=== PATIENT | male | born 1940 | race Caucasian/White ===

== ENCOUNTER 2021-05-04 07:21 | Emergency (ER) | payer SELFPAY ==
[~2021-05-04] VITALS: Ht 165.1 cm; Wt 63.0 kg
[2021-05-04] MEDS ORDERED: SODIUM CHLORIDE 0.9% 1,000 ML IV ONE (08:00)
[2021-05-04] MEDS ORDERED: ONDANSETRON HCL 4MG/2ML INJ IV STA (08:00)
[2021-05-04] MEDS ORDERED: MAGNESIUM/ALUMINUM HYDROXIDE/SIMETHICONE 30ML UDC PO STA (08:05)
[2021-05-04 08:30] LABS: HEMOGLOBIN. 17.9 g/dL (14.0-18.0); MEAN CORPUSCULAR HEMOGLOBIN 32.4 pg (28.0-32.0); MEAN CORPUSCULAR VOLUME 93.9 fL (80.0-94.0); MEAN PLATELET VOLUME 10.2 fl (7.4-10.4); PLATELET 248 x1000/uL (130-400); RED BLOOD CELL COUNT 5.53 mill/uL (4.7-6.1); RED CELL DISTRIBUTION WIDTH 12.3 % (11.6-14.6)
[2021-05-04 08:39] LABS: CHLORIDE 94 mEq/L (98-107)
[2021-05-04 09:13] LABS: PLATELET ESTIMATE NORMAL
[2021-05-04] MEDS ORDERED: ONDA4TAB5 MT (10:03)
[2021-05-04 10:14] VITALS: BP 172/99
== END 2021-05-04 11:21 | disposition home or self-care (01) ==
LOC: ER 07:58
DX: K29.70 Gastritis, unspecified, without bleeding (principal); E11.9 Type 2 diabetes mellitus without complications; Z98.890 Other specified postprocedural states
CPT/HCPCS: 36415; 80053; 83690; 85025; 93005; 96361; 96374; 99284; J2405; J7030

== ENCOUNTER 2021-05-25 21:30 | Emergency (ER) | payer SELFPAY ==
[~2021-05-25] VITALS: Ht 172.7 cm; Wt 57.0 kg
[~2021-05-25 21:30] MED LIST: ONDA4TAB5 MT
[2021-05-25 21:39] VITALS: BP 113/70
[2021-05-25] MEDS ORDERED: ACETAMINOPHEN 325MG TABLET PO NR (22:37)
[2021-05-26 00:09] LABS: HEMATOCRIT. 41.3 % (42.0-52.0); HEMOGLOBIN. 14.6 g/dL (14.0-18.0); LYMPHOCYTES % 24.7 % (20.0-50.0); MEAN CORPUSCULAR HEMOGLOBIN 32.5 pg (28.0-32.0); MEAN CORPUSCULAR VOLUME 92.2 fL (80.0-94.0); MEAN PLATELET VOLUME 9.4 fl (7.4-10.4); MONOCYTES % 7.8 % (2.0-8.0); NEUTROPHILS % 64.5 % (40.0-76.0); PLATELET 210 x1000/uL (130-400); RED BLOOD CELL COUNT 4.48 mill/uL (4.7-6.1); RED CELL DISTRIBUTION WIDTH 13.2 % (11.6-14.6)
[2021-05-26 00:14] LABS: CHLORIDE 100 mEq/L (98-107)
[2021-05-26 00:22] LABS: BETA HYDROXYBUTYRATE 0.1 mMol/L (0.0-0.3)
[2021-05-26] MEDS ORDERED: IBUPROFEN 600MG TABLET PO NR (00:52)
== END 2021-05-26 01:33 | disposition left against medical advice (07) ==
LOC: ER 21:30
DX: M79.662 Pain in left lower leg (principal); E11.9 Type 2 diabetes mellitus without complications
CPT/HCPCS: 36415; 80048; 82010; 85025; 99283

== ENCOUNTER 2023-11-05 10:09 | Inpatient (IN) | payer SELFPAY ==
[~2023-11-05] VITALS: Ht 172.7 cm; Wt 65.3 kg
[2023-11-05 10:11] VITALS: O2SAT 99
[2023-11-05] MEDS: ONDANSETRON HCL 4MG/2ML INJ IV STA (11:10)
[2023-11-05] MEDS: MORPHINE SULFATE 4 MG/ML INJ (FOR IV/IM USE) IV STA (11:10)
[2023-11-05] MEDS: SODIUM CHLORIDE 0.9% 1,000 ML IV ONE (11:10)
[2023-11-05 11:18] LABS: HEMATOCRIT. 35.7 % (42.0-52.0); HEMOGLOBIN. 12.2 g/dL (14.0-18.0); MEAN CORPUSCULAR HEMOGLOBIN 31.5 pg (28.0-32.0); MEAN CORPUSCULAR HGB CONC 34.3 g/dL (31.0-37.0); MEAN PLATELET VOLUME 9.3 fl (7.4-10.4); PLATELET 223 x1000/uL (130-400); RED BLOOD CELL COUNT 3.88 mill/uL (4.7-6.1); RED CELL DISTRIBUTION WIDTH 13.2 % (11.6-14.6); WHITE BLOOD COUNT 16.4 x1000/uL (4.5-11.0)
[2023-11-05 11:20] LABS: DIFFERENTIAL COMMENT 1
[2023-11-05 11:23] LABS: PLATELET ESTIMATE NORMAL
[2023-11-05 11:26] LABS: INR 0.9; PARTIAL THROMBOPLASTIN TIME 32.5 sec (23.4-31.0); PROTHROMBIN TIME 10.5 sec (9.6-11.0)
[2023-11-05 11:29] LABS: TROPONIN I HIGH SENSITIVITY 7 ng/L (3.0-53)
[2023-11-05 12:14] LABS: CHLORIDE 101 mEq/L (98-107); POTASSIUM 4.3 mEq/L (3.5-5.1); SODIUM 131 mEq/L (136-145)
[2023-11-05 12:15] LABS: CARBON DIOXIDE 20 mEq/L (21-32)
[2023-11-05 12:20] LABS: CREATININE 0.9 mg/dL (0.6-1.3); GLUCOSE 380 mg/dL (70-105); UREA NITROGEN BLOOD 21 mg/dL (9-23)
[2023-11-05 12:22] LABS: ALANINE AMINOTRANSFERASE 29 IU/L (10-49); ALBUMIN 3.6 g/dL (3.2-4.8); ASPARTATE AMINOTRANSFERASE 16 IU/L (<34); PROTEIN TOTAL 6.3 g/dL (6.0-8.3)
[2023-11-05] MEDS: SODIUM CHLORIDE 0.9% 1000ML BAG (SEPSIS BOLUS) IV ONE (12:40)
[2023-11-05] MEDS: PIPERACILLIN/TAZO 3.375G/50ML 50 ML IV ONE (12:40)
[2023-11-05] MEDS: VANCOMYCIN 1G PREMIX 200 ML IV ONE (13:30)
[2023-11-05 13:49] LABS: CLARITY URINE CLEAR (CLEAR); COLOR URINE YELLOW (YELLOW); GLUCOSE URINE 3+ (NEGATIVE); KETONES URINE NEGATIVE (NEGATIVE); LEUKOCYTE ESTERASE URINE NEGATIVE (NEGATIVE); NITRITE URINE NEGATIVE (NEGATIVE); OCCULT BLOOD URINE TRACE (NEGATIVE); PROTEIN URINE 3+ (NEGATIVE); SPECIFIC GRAVITY URINE 1.031 (1.005-1.030)
[2023-11-05 14:24] LABS: RBC URINE NONE SEEN /hpf (0-2); SQUAMOUS EPITHELIAL CELL URINE NONE SEEN /lpf (RARE/1+)
[2023-11-05 14:25] LABS: BACTERIA URINE 1+; YEAST URINE NONE SEEN
[2023-11-05 16:30] VITALS: BP 134/71; PULSE 106; RESP 19; TEMP 97.7
[2023-11-05 17:08] VITALS: BP 134/71; PULSE 106; RESP 19; TEMP 97.7
[2023-11-05] MEDS ORDERED: IPRATROPIUM/ALBUTEROL 0.5-3(2.5)MG/3ML NEB NEB PRN (18:00)
[2023-11-05] MEDS ORDERED: GUAIFENESIN 200MG/10ML SUGAR FREE UDC PO PRN (18:00)
[2023-11-05] MEDS ORDERED: ONDANSETRON HCL 4MG/2ML INJ IV PRN (18:00)
[2023-11-05] MEDS ORDERED: ACETAMINOPHEN 325MG TABLET PO PRN (18:00)
[2023-11-05] MEDS ORDERED: CLONIDINE 0.1MG TABLET PO PRN (18:00)
[2023-11-05] MEDS ORDERED: MAGNESIUM/ALUMINUM HYDROXIDE/SIMETHICONE 30ML UDC PO PRN (18:00)
[2023-11-05] MEDS ORDERED: METF-414 PO (18:11)
[2023-11-05 20:00] VITALS: BP 131/74; PULSE 116; RESP 18; TEMP 102.2
[2023-11-05] MEDS: ACETAMINOPHEN 325MG TABLET PO PRN (21:16)
[2023-11-05] MEDS: CEFTRIAXONE 1GM/50ML 50 ML IV SCH (21:19)
[2023-11-05] MEDS: AZITHROMYCIN 500MG/250ML 250 ML IV SCH (21:19)
[2023-11-05] MEDS: ENOXAPARIN 40MG/0.4ML SYR SUBCUT SCH (21:20)
[2023-11-05] MEDS: SODIUM CHLORIDE 0.9% 1,000 ML IV SCH (21:24)
[2023-11-06] VITALS: BP 135/77; PULSE 112; RESP 20; TEMP 99.6
[2023-11-06 04:00] VITALS: BP 118/70; PULSE 103; RESP 20; TEMP 98.8
[2023-11-06 06:08] LABS: HEMATOCRIT. 32.6 % (42.0-52.0); HEMOGLOBIN. 11.1 g/dL (14.0-18.0); MEAN CORPUSCULAR VOLUME 91.3 fL (80.0-94.0); MEAN PLATELET VOLUME 9.4 fl (7.4-10.4); PLATELET 218 x1000/uL (130-400); RED BLOOD CELL COUNT 3.57 mill/uL (4.7-6.1); RED CELL DISTRIBUTION WIDTH 13.3 % (11.6-14.6); WHITE BLOOD COUNT 14.8 x1000/uL (4.5-11.0)
[2023-11-06 06:13] LABS: DIFFERENTIAL COMMENT 1
[2023-11-06 06:16] LABS: CARBON DIOXIDE 21 mEq/L (21-32); CHLORIDE 102 mEq/L (98-107); POTASSIUM 4.1 mEq/L (3.5-5.1); SODIUM 130 mEq/L (136-145)
[2023-11-06 06:17] LABS: CALCIUM 8.9 mg/dL (8.7-10.4)
[2023-11-06 06:21] LABS: CREATININE 0.8 mg/dL (0.6-1.3); GLUCOSE 272 mg/dL (70-105)
[2023-11-06 06:22] LABS: UREA NITROGEN BLOOD 20 mg/dL (9-23)
[2023-11-06 06:24] LABS: PHOSPHORUS 2.1 mg/dL (2.5-4.9)
[2023-11-06 08:00] VITALS: BP 117/52; PULSE 108; RESP 18; TEMP 97.9
[2023-11-06 09:53] LABS: PLATELET ESTIMATE NORMAL
[2023-11-06 12:00] VITALS: BP 115/70; PULSE 104; RESP 22; TEMP 98.7
[2023-11-06 16:00] VITALS: BP 145/82; PULSE 104; RESP 20; TEMP 98.1
[2023-11-06 20:23] VITALS: BP 135/81; PULSE 110; RESP 20; TEMP 97.5
[2023-11-07] VITALS (7 sets, daily range): BP systolic 120–146; BP diastolic 78–86; PULSE 74–109; RESP 16–20; TEMP 97.4–101.7
[2023-11-07 06:35] LABS: MEAN CORPUSCULAR HEMOGLOBIN 31.4 pg (28.0-32.0); MEAN CORPUSCULAR VOLUME 89.9 fL (80.0-94.0); MEAN PLATELET VOLUME 9.3 fl (7.4-10.4); PLATELET 202 x1000/uL (130-400); RED BLOOD CELL COUNT 2.93 mill/uL (4.7-6.1); RED CELL DISTRIBUTION WIDTH 13.3 % (11.6-14.6); WHITE BLOOD COUNT 12.7 x1000/uL (4.5-11.0)
[2023-11-07 07:01] LABS: DIFFERENTIAL COMMENT 1
[2023-11-07 07:02] LABS: HEMATOCRIT. 26.4 % (42.0-52.0); HEMOGLOBIN. 9.2 g/dL (14.0-18.0)
[2023-11-07] MEDS ORDERED: DEXTROSE 50% WATER 50ML SYRINGE IV PRN (08:00)
[2023-11-07] MEDS: BLOOD SUGAR DIAGNOSTIC STRIP TEST SCH (08:40)
[2023-11-07] MEDS: INSULIN LISPRO 100 UNITS/ML SUBCUT SCH (09:10)
[2023-11-07 11:53] LABS: CHLORIDE 102 mEq/L (98-107); POTASSIUM 3.7 mEq/L (3.5-5.1); SODIUM 130 mEq/L (136-145)
[2023-11-07 11:54] LABS: CARBON DIOXIDE 21 mEq/L (21-32)
[2023-11-07 11:55] LABS: CALCIUM 8.9 mg/dL (8.7-10.4)
[2023-11-07 11:59] LABS: CREATININE 0.7 mg/dL (0.6-1.3); GLUCOSE 349 mg/dL (70-105); PHOSPHORUS 2.4 mg/dL (2.5-4.9); UREA NITROGEN BLOOD 23 mg/dL (9-23)
[2023-11-07] MEDS ORDERED: LIDOCAINE HCL/EPINEPHRINE 1%-EPI 1:100,000 20 ML VIAL INFIL NR (14:30)
[2023-11-07 16:57] LABS: PLATELET ESTIMATE NORMAL
[2023-11-07] MEDS: INSULIN GLARGINE 100 UNITS/ML SUBCUT SCH (22:00)
[2023-11-07] MEDS: VANCOMYCIN 1.5GM/250ML IV NR (23:30)
[2023-11-08 01:25] VITALS: BP 149/70; PULSE 91; RESP 20; TEMP 97.8
[2023-11-08 04:00] VITALS: BP 139/58; PULSE 80; RESP 18; TEMP 99
[2023-11-08 08:11] LABS: HEMOGLOBIN. 11.8 g/dL (14.0-18.0); MEAN CORPUSCULAR HEMOGLOBIN 31.4 pg (28.0-32.0); MEAN CORPUSCULAR HGB CONC 34.7 g/dL (31.0-37.0); MEAN CORPUSCULAR VOLUME 90.4 fL (80.0-94.0); MEAN PLATELET VOLUME 9.2 fl (7.4-10.4); PLATELET 269 x1000/uL (130-400); RED BLOOD CELL COUNT 3.77 mill/uL (4.7-6.1); RED CELL DISTRIBUTION WIDTH 13.4 % (11.6-14.6); WHITE BLOOD COUNT 14.3 x1000/uL (4.5-11.0)
[2023-11-08 08:16] LABS: DIFFERENTIAL COMMENT 1
[2023-11-08 08:23] LABS: CARBON DIOXIDE 21 mEq/L (21-32); CHLORIDE 101 mEq/L (98-107); POTASSIUM 3.8 mEq/L (3.5-5.1); SODIUM 133 mEq/L (136-145)
[2023-11-08 08:24] LABS: CALCIUM 9.1 mg/dL (8.7-10.4)
[2023-11-08 08:29] LABS: CREATININE 0.7 mg/dL (0.6-1.3); GLUCOSE 289 mg/dL (70-105); UREA NITROGEN BLOOD 18 mg/dL (9-23)
[2023-11-08 13:43] LABS: PLATELET ESTIMATE NORMAL
== END 2023-11-08 07:20 | disposition left against medical advice (07) | DRG 720 ==
LOC: ER 10:11 → 8WST 12:56 → UNDOADMIN 12:56 → 7WST 13:06 → EDBEDREQ 13:23 → EDBEDREQTM 13:23
PROVIDERS: ADMIT Internal Medicine; ATTEND Internal Medicine
DX: A41.9 Sepsis, unspecified organism (principal); E11.65 Type 2 diabetes mellitus with hyperglycemia; L02.413 Cutaneous abscess of right upper limb; L03.113 Cellulitis of right upper limb; I10 Essential (primary) hypertension; N43.3 Hydrocele, unspecified; N50.3 Cyst of epididymis; Z79.4 Long term (current) use of insulin; R55 Syncope and collapse
CPT/HCPCS: 36415; 71045; 71250; 76870; 80048; 80053; 81003; 82962; 83036; 83605; 83735; 83880; 83930; 84100; 84145; 84484; 85025; 86850; 86900; 87426; 93005; 93306; 93976; 99285; J0456; J0696; J1650; J1815; J2270; J2405; J2543; J3370; J3490; J7030